=== PATIENT | female | born 1940 | race Caucasian/White ===

== ENCOUNTER → 2017-10-18 08:20 | Outpatient (CLI) | payer MEDICARE, OTHER, SELFPAY ==
[2017-10-18 10:56] LABS: ALB/GLOB Ratio 0.8 RATIO (0.9-2.4); AST(SGOT) 19 U/L (15-37); Alanine Aminotransfer ALT/SGPT 28 U/L (13-56); Albumin, Serum 3.7 g/dL (3.2-5.0); Alkaline Phosphatase 75 U/L (45-117); Anion Gap 9 (5-15); BUN 13 mg/dL (7-18); BUN/Creat Ratio 20.1 RATIO (10-20); Calcium,Total 8.8 mg/dL (8.5-10.1); Chloride 103 mmol/L (98-107); Cholesterol 131 mg/dL (200); Creatinine, Serum 0.65 mg/dL (0.55-1.02); EST Glomerular Filtration Rate 94 mL/min (>60); Est Glom Filt Rate - Afr Amer 114 mL/min (>60); Globulin 4.5 g/dL (2.2-4.2); Glucose 106 mg/dL (74-106); High Density Lipoprotein 67 mg/dL; Protein, Total 8.2 g/dL (6.4-8.2); Sodium Level 136 mmol/L (136-145); Thyroid Stim Hormone (TSH) 1.04 uIU/mL (0.358-3.74); Triglycerides 123 mg/dL; Very Low Density Lipoprotein 25 mg/dL (5-40)
== END ==
PROVIDERS: Family Provider Family Medicine; PCP Family Medicine; Visit Provider Family Medicine
DX: Z00.00 Encounter for general adult medical examination without abnormal findings (principal)
CPT/HCPCS: 36415; 80053; 80061; 84443

== ENCOUNTER → 2018-01-28 10:54 | Outpatient (CLI) | payer MEDICARE, OTHER, SELFPAY ==
[2018-01-28 14:28] LABS: Absolute Lymphocyte Count 2.41 X10^3/ul (0.83-4.51); Absolute Neutrophil Count 4.7 X10^3/uL (2.0-7.7); Basophil# 0.03 X10^3/uL; Basophil% 0.4 % (0-1); Eosinophil# 0.14 X10^3/uL; Eosinophils% 1.7 % (0-5); Hematocrit 41.2 % (37-47); Hemoglobin 13.8 g/dl (12.0-15.0); Lymphocyte # 2.41 X10^3/ul (4.0); Lymphocyte % 29.4 % (19-41); Mean Corp Hgb Conc 33.5 g/gl (32-36); Mean Corpuscular Hgb 29.4 pg (27.0-32.0); Mean Corpuscular Volume 87.7 fL (81-99); Mean Platelet Vol. 9.9 fl (6.2-12.0); Monocyte# 0.95 X10^3/uL; Monocyte% 11.6 % (0-10); Neutrophil # 4.67 X10^3/uL (2.7-7.7); Neutrophil % 56.8 % (47-70); Platelet Count 248 K/mm3 (150-450); RBC Distribution Width CV 14.2 % (11.6-14.6); RBC Distribution Width SD 45.2 fl (35.1-43.9); White Blood Count 8.2 K/mm3 (4.4-11.0)
[2018-01-28 14:33] LABS: POSITIVE COUNT NO; POSITIVE DIFFERENTIAL NO; POSITIVE MORPHOLOGY NO
[2018-01-28 14:40] LABS: Anion Gap 10 (5-15); BUN 14 mg/dL (7-18); BUN/Creat Ratio 23.5 RATIO (10-20); Calcium,Total 9.2 mg/dL (8.5-10.1); Chloride 100 mmol/L (98-107); EST Glomerular Filtration Rate 104 mL/min (>60); Est Glom Filt Rate - Afr Amer 126 mL/min (>60); Glucose 102 mg/dL (74-106); Potassium 3.7 mmol/L (3.5-5.1); Sodium Level 137 mmol/L (136-145)
== END ==
PROVIDERS: Nurse Practitioner Adult Health; Family Provider Family Medicine; PCP Family Medicine; Visit Provider Family Medicine
DX: R53.83 Other fatigue (principal)
CPT/HCPCS: 36415; 80048; 85025

== ENCOUNTER → 2018-10-23 08:26 | Outpatient (CLI) | payer MEDICARE, OTHER, SELFPAY ==
[2018-10-23 10:40] LABS: Microalbumin,Random Urine 84.9 mg/L (NO RANGE EST.); Microalbumin:Creatinine Ratio 71.9 mg/g CRE (<30 mg/g CRE)
[2018-10-23 10:47] LABS: ALB/GLOB Ratio 0.9 RATIO (0.9-2.4); AST(SGOT) 18 U/L (15-37); Alanine Aminotransfer ALT/SGPT 24 U/L (13-56); Albumin, Serum 3.6 g/dL (3.2-5.0); Alkaline Phosphatase 65 U/L (45-117); Anion Gap 11 (5-15); BUN 13 mg/dL (7-18); BUN/Creat Ratio 22.4 RATIO (10-20); Calcium,Total 8.7 mg/dL (8.5-10.1); Chloride 103 mmol/L (98-107); Cholesterol 150 mg/dL (200); Creatinine, Serum 0.58 mg/dL (0.55-1.02); EST Glomerular Filtration Rate 107 mL/min (>60); Est Glom Filt Rate - Afr Amer 129 mL/min (>60); Globulin 3.9 g/dL (2.2-4.2); Glucose 109 mg/dL (74-106); High Density Lipoprotein 78 mg/dL; Potassium 3.8 mmol/L (3.5-5.1); Protein, Total 7.5 g/dL (6.4-8.2); Sodium Level 140 mmol/L (136-145); Thyroid Stim Hormone (TSH) 1.23 uIU/mL (0.358-3.74); Triglycerides 129 mg/dL; Very Low Density Lipoprotein 26 mg/dL (5-40)
== END ==
PROVIDERS: Family Provider Family Medicine; PCP Family Medicine; Referring Provider Family Medicine; Visit Provider Family Medicine
DX: E03.9 Hypothyroidism, unspecified (principal); E78.00 Pure hypercholesterolemia, unspecified; I10 Essential (primary) hypertension
CPT/HCPCS: 36415; 80053; 80061; 82043; 82570; 84443

== ENCOUNTER → 2018-11-14 10:19 | Outpatient (CLI) | payer MEDICARE, OTHER, SELFPAY ==
--- NOTE | 2018-11-14 10:21 | BI_ITS ---
MAMMOGRAPHY - BILATERAL SCREENING REASON FOR EXAM: Female, 78 years old. Routine annual screening examination. PERTINENT HISTORY: Aunt with breast cancer. Remote left excisional breast biopsy. TECHNIQUE: Digital bilateral breast daksha (3D mammographic acquisition) in the CC and MLO projections. 2-D mediolateral oblique (MLO) and craniocaudad (CC) views of both breasts were obtained. CAD: Full Field Digital Mammography with Computer Added Detection was performed. COMPARISON: Comparison is made with prior study January 11, 2016 and December 13, 2014. FINDINGS: Breast Composition: There are scattered areas of fibroglandular density. In the deep lateral aspect of the left breast on the craniocaudad view, there appears to be 1.5 cm nodular density. The patient will be recalled for additional views of the breasts including 90 degree lateral and exaggerated craniocaudad view of the left breast. Stable small bilateral axillary lymph nodes. No other significant abnormalities are identified. BI/SCREENING MAMM (CAD), BILAT IMPRESSION: Possible nodular density in the deep lateral aspect of the left breast as seen on the craniocaudad view. The patient was recalled for additional views including 90 degree lateral and exaggerated craniocaudal view of the left breast. Recall Side: Right Breast ASSESSMENT CATEGORY: BIRADS Category 0: Incomplete. Need additional imaging evaluation. A letter regarding these results will be sent to the patient by the facility within 30 days. Approximately 10% of breast cancers are not detected by mammography. A normal mammogram should not delay biopsy of a clinically suspicious abnormality. [id number] Electronically Signed: Lance Hardwick, at 13:08 EDT , Service support ,
== END ==
PROVIDERS: Family Provider Family Medicine; PCP Family Medicine; Referring Provider Family Medicine; Visit Provider Family Medicine
DX: Z12.31 Encounter for screening mammogram for malignant neoplasm of breast (principal); Z80.3 Family history of malignant neoplasm of breast
CPT/HCPCS: 77063; 77067

== ENCOUNTER → 2018-11-21 08:52 | Outpatient (CLI) | payer MEDICARE, OTHER, SELFPAY ==
--- NOTE | 2018-11-21 08:56 | BI_ITS ---
MAMMOGRAPHY - UNILATERAL DIAGNOSTIC: LEFT BREAST REASON FOR EXAM: Female, 78 years old. Abnormal screening mammogram. PERTINENT HISTORY: Aunt with breast cancer. TECHNIQUE: Exaggerated craniocaudad view and 90 degree lateral view of the left breast were obtained. CAD: Full Field Digital Mammography with Computer Added Detection was performed. COMPARISON: Comparison is made with prior mammogram dated November 14, 2018. FINDINGS: Breast Composition: There are scattered areas of fibroglandular density. The nodular density represents a fat-containing lymph node. Routine annual mammogram is recommended. No other significant abnormalities are identified. BI/DIAG MAMM W/CAD, UNILAT IMPRESSION: Stable unilateral diagnostic mammogram. One year follow-up mammogram recommended. (A) ASSESSMENT CATEGORY: BIRADS Category 2: Benign. A letter regarding these results will be sent to the patient by the facility within 30 days. Approximately 10% of breast cancers are not detected by mammography. A normal mammogram should not delay biopsy of a clinically suspicious abnormality. Electronically Signed: Lance Hardwick, at 10:08 EDT , Service support ,
== END ==
PROVIDERS: Family Provider Family Medicine; PCP Family Medicine; Referring Provider Family Medicine; Visit Provider Family Medicine
DX: R92.8 Other abnormal and inconclusive findings on diagnostic imaging of breast (principal); Z80.3 Family history of malignant neoplasm of breast
CPT/HCPCS: 77065

== ENCOUNTER → 2019-03-10 10:47 | Outpatient (CLI) | payer MEDICARE, OTHER, SELFPAY ==
--- NOTE | 2019-03-10 10:52 | RAD_ITS ---
HISTORY: abdominal pain, colicky ADDITIONAL HISTORY: None. COMPARISON: None Technique: Supine and upright abdominal radiographs. Number of images including paperwork: 2 FINDINGS: FREE AIR: None detected. BOWEL GAS PATTERN: Nonobstructive. CALCIFICATIONS: 14 mm calcific density projects over the right mid to lower kidney. ORGANS: No evidence of organomegaly. SOFT TISSUES: Unremarkable. BONES: No acute skeletal findings. Degenerative changes. RAD/Abd Inc Decub and/or Erect IMPRESSION: No acute abdominal abnormality is radiographically apparent. 14 mm calcific density projects over the right kidney, possibly renal calculus, calcified node, gallstone or bowel content. at 2342 Reported and signed by: Elena Arizmendi MD Electronically Signed: Elena Arizmendi MD at 23:42 EDT Tel , Service support ,
--- NOTE | 2019-03-10 10:55 | RAD_ITS ---
HISTORY: abdominal pain, colicky ADDITIONAL HISTORY: None. COMPARISON: Abdominal series the same date Technique: Left lateral decubitus abdominal radiographs Number of images including paperwork: 2 FINDINGS: FREE AIR: None detected. BOWEL GAS PATTERN: Nonobstructive. CALCIFICATIONS: 14 mm calcific density projects over the right mid to lower kidney. ORGANS: No evidence of organomegaly. SOFT TISSUES: Unremarkable. BONES: No acute skeletal findings. Degenerative changes. RAD/Abdomen Single View IMPRESSION: No acute abdominal abnormality is radiographically apparent. 14 mm calcific density projects over the right kidney, possibly renal calculus, calcified node, gallstone or bowel content. at [id number] Reported and signed by: Elena Arizmendi MD Electronically Signed: Elena Arizmendi MD at 23:43 EDT Tel , Service support ,
== END ==
PROVIDERS: Family Provider Family Medicine; PCP Family Medicine; Referring Provider Family Medicine; Visit Provider Family Medicine
DX: R10.84 Generalized abdominal pain (principal)
CPT/HCPCS: 74018; 74019

== ENCOUNTER → 2019-04-21 09:46 | Outpatient (CLI) | payer MEDICARE, OTHER, SELFPAY ==
[2019-04-21 12:21] LABS: Anion Gap 7 (5-15); BUN 14 mg/dL (7-18); BUN/Creat Ratio 21.1 RATIO (10-20); Calcium,Total 9.1 mg/dL (8.5-10.1); Chloride 96 mmol/L (98-107); Creatinine, Serum 0.66 mg/dL (0.55-1.02); EST Glomerular Filtration Rate 91 mL/min (>60); Est Glom Filt Rate - Afr Amer 111 mL/min (>60); Glucose 146 mg/dL (74-106); Potassium 3.6 mmol/L (3.5-5.1); Sodium Level 132 mmol/L (136-145)
[2019-04-21 12:26] LABS: Microalbumin,Random Urine 22.5 mg/L (NO RANGE EST.)
== END ==
PROVIDERS: Family Provider Family Medicine; PCP Family Medicine; Visit Provider Family Medicine
DX: I10 Essential (primary) hypertension (principal); R80.9 Proteinuria, unspecified
CPT/HCPCS: 36415; 80048; 82043; 82570

== ENCOUNTER → 2019-05-06 08:34 | Outpatient (CLI) | payer MEDICARE, OTHER, SELFPAY ==
[2019-05-06 10:29] LABS: Urine Sodium 51 mmol/L (Not Establ.)
[2019-05-06 10:42] LABS: Osmolality, Urine 527 mOsm/KG
[2019-05-06 10:52] LABS: Anion Gap 9 (5-15); BUN 17 mg/dL (7-18); Calcium,Total 8.8 mg/dL (8.5-10.1); Chloride 101 mmol/L (98-107); Creatinine, Serum 0.65 mg/dL (0.55-1.02); EST Glomerular Filtration Rate 93 mL/min (>60); Est Glom Filt Rate - Afr Amer 113 mL/min (>60); Glucose 119 mg/dL (74-106); Sodium Level 136 mmol/L (136-145)
== END ==
PROVIDERS: Family Provider Family Medicine; PCP Family Medicine; Referring Provider Family Medicine; Visit Provider Family Medicine
DX: I10 Essential (primary) hypertension (principal)
CPT/HCPCS: 36415; 80048; 83935; 84300

== ENCOUNTER → 2020-02-17 15:20 | Outpatient (CLI) | payer MEDICARE, OTHER, SELFPAY ==
[2020-02-17 17:57] LABS: Vitamin D,25 Hydroxy 27.5 ng/mL
[2020-02-17 18:14] LABS: ALB/GLOB Ratio 0.9 RATIO (0.9-2.4); AST(SGOT) 17 U/L (15-37); Alanine Aminotransfer ALT/SGPT 36 U/L (13-56); Albumin, Serum 3.7 g/dL (3.2-5.0); Alkaline Phosphatase 77 U/L (45-117); Anion Gap 6 (5-15); BUN 17 mg/dL (7-18); BUN/Creat Ratio 28.3 RATIO (10-20); Calcium,Total 9.1 mg/dL (8.5-10.1); Chloride 103 mmol/L (98-107); Cholesterol 134 mg/dL (200); EST Glomerular Filtration Rate 102 mL/min (>60); Est Glom Filt Rate - Afr Amer 124 mL/min (>60); Globulin 4.2 g/dL (2.2-4.2); Glucose 95 mg/dL (74-106); High Density Lipoprotein 55 mg/dL; Potassium 3.9 mmol/L (3.5-5.1); Protein, Total 7.9 g/dL (6.4-8.2); Sodium Level 135 mmol/L (136-145); Thyroid Stim Hormone (TSH) 0.71 uIU/mL (0.358-3.74); Triglycerides 184 mg/dL; Very Low Density Lipoprotein 37 mg/dL (5-40)
== END ==
PROVIDERS: PCP Family Medicine; Referring Provider Family Medicine; Visit Provider Family Medicine
DX: E78.00 Pure hypercholesterolemia, unspecified (principal); E03.9 Hypothyroidism, unspecified; M85.80 Other specified disorders of bone density and structure, unspecified site; I10 Essential (primary) hypertension
CPT/HCPCS: 36415; 80053; 80061; 82306; 84443

== ENCOUNTER → 2020-03-15 14:16 | Outpatient (CLI) | payer MEDICARE, OTHER, SELFPAY ==
--- NOTE | 2020-03-15 14:19 | BI_ITS ---
MAMMOGRAPHY - BILATERAL SCREENING REASON FOR EXAM: Female, 79 years old. Routine annual screening examination. PERTINENT HISTORY: Aunt with breast cancer. Remote left excisional breast biopsy. TECHNIQUE: Digital bilateral breast bryan (3D mammographic acquisition) in the CC and MLO projections. 2-D mediolateral oblique (MLO) and craniocaudad (CC) views of both breasts were obtained. CAD: Full Field Digital Mammography with Computer Added Detection was performed. COMPARISON: Comparison is made with prior study dated 11/14/2018 and 01/11/2016. FINDINGS: Breast Composition: The breasts are heterogeneously dense, which may obscure small masses. There are no dominant masses or suspicious calcifications. Questionable 1.2 cm x 1.3 cm nodular density in the superior lateral retroareolar region of the right breast. Correlation with ultrasound is recommended. No other significant abnormalities are identified. BI/SCREEN MAMM (CAD) W/BRYAN BILAT IMPRESSION: Possible nodular density in the right breast as described. Correlation with ultrasound is recommended. ASSESSMENT CATEGORY: BIRADS Category 0: Incomplete. Need additional imaging evaluation. A letter regarding these results will be sent to the patient by the facility within 30 days. Approximately 10% of breast cancers are not detected by mammography. A normal mammogram should not delay biopsy of a clinically suspicious abnormality. [id number] Electronically Signed: Lance Hardwick, at 15:22 EDT , Service support ,
--- NOTE | 2020-03-15 14:19 | BD_ITS ---
STUDY: DUAL ENERGY X-RAY ABSORPTIOMETRY / DXA REASON FOR EXAM: Female, 79 years old. 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 COMPARISON: Comparison is made with prior study dated 11/01/2016. FINDINGS: Lumbar Spine (L1-L4): g/cm2 (0.964) / T-score (-2.0) / Z-score (0.1) Findings are suggestive of osteopenia with a moderate fracture risk. Left Femur Total: g/cm2 (0.936) / T-score (-0.6) / Z-score (1.4) Left Femoral Neck: g/cm2 (0.709) / T-score (-2.4) / Z-score (-0.2) Right Femur Total: g/cm2 (0.845) / T-score (-1.3) / Z-score (0.7) Right Femoral Neck: g/cm2 (0.737) / T-score (-2.2) / Z-score (0.0) The T-Scores on the most recent prior examination were: Lumbar Spine (L1-L4): There has been worsening of bone density since the previous examination. Left Femur Total: which represents an improvement of 2%. Right Femur Total: which represents an improvement of 1%. BD/Dexa Bone Density Study IMPRESSION: The patient is considered osteopenic as outlined below according to World Reji Organization (WHO) criteria with a high fracture risk. There has been improvement of bone density since the previous examination. Reference Information: The T-score is the number of standard deviations above or below the standard which is normal for young adults at their peak bone mineral density. The World Health Organization (WHO) interprets the T-scores as follows: Above -1 Normal bone density Between -1 and -2.5 Osteopenia Equal to / or below -2.5 Osteoporosis As a practical clinical guideline, osteopenia may be graded as follows: Mild -1 through -1.5 Moderate -1.6 through -2.0 Severe -2.1 through -2.4 The Z-score is the number of standard deviations above or below age-matched controls. A Z-score of less than -1.5 would be considered abnormal. References: 1. NIH Osteoporosis and Related Bone Diseases http://www.osteo.org 2. International Society for Clinical Densitometry http://www.iscd.org 3. National Osteoporosis Foundation http://www.nof.org Electronically Signed: Lance Hardwick, at 15:49 EDT , Service support ,
== END ==
PROVIDERS: PCP Family Medicine; Referring Provider Family Medicine; Visit Provider Family Medicine
DX: Z00.00 Encounter for general adult medical examination without abnormal findings (principal); Z12.31 Encounter for screening mammogram for malignant neoplasm of breast; M85.80 Other specified disorders of bone density and structure, unspecified site; Z78.0 Asymptomatic menopausal state
CPT/HCPCS: 77063; 77067; 77080

== ENCOUNTER → 2020-03-17 10:50 | Outpatient (CLI) | payer MEDICARE, OTHER, SELFPAY ==
--- NOTE | 2020-03-17 10:52 | US_ITS ---
STUDY: ULTRASOUND BREAST - RIGHT REASON FOR EXAM: Female, 79 years old. Abnormal screening mammogram. TECHNIQUE: Axial and longitudinal images of the RIGHT breast were performed with a high resolution ultrasound transducer. # OF IMAGES: 19 COMPARISON: Comparison is made with prior mammogram dated 03/15/2020. FINDINGS: RIGHT Breast: The retroareolar region of the right breast was examined by ultrasound. There is homogeneous fibroglandular tissue. No solid or cystic mass lesion is seen. US/Breast Limited Unilateral IMPRESSION: Unremarkable sonographic examination. Routine mammographic follow-up is recommended. ASSESSMENT CATEGORY: BIRADS Category 1: Negative. A letter regarding these results will be sent to the patient by the facility within 30 days. Electronically Signed: Lance Hardwick, at 13:35 EDT , Service support ,
== END ==
PROVIDERS: PCP Family Medicine; Referring Provider Family Medicine; Visit Provider Family Medicine
DX: R92.8 Other abnormal and inconclusive findings on diagnostic imaging of breast (principal)
CPT/HCPCS: 76642

== ENCOUNTER → 2020-04-12 | Outpatient (CLI) | payer MEDICARE, OTHER, SELFPAY | END | disposition home or self-care (01) | LOC: LABSPEC 16:46 | PROVIDERS: PCP Family Medicine; Referring Provider Family Medicine; Visit Provider Registered Nurse | DX: Z20.828 Contact with and (suspected) exposure to other viral communicable diseases (principal) | CPT/HCPCS: 87635; U0003 ==

== ENCOUNTER → 2021-03-01 08:13 | Outpatient (CLI) | payer MEDICARE, OTHER, SELFPAY ==
[2021-03-01 10:09] LABS: Hematocrit 43.4 % (37-47); Hemoglobin 14.4 g/dL (12.0-15.0); Mean Corp Hgb Conc 33.2 g/dL (32-36); Mean Corpuscular Hgb 29.5 pg (27.0-32.0); Mean Corpuscular Volume 88.9 fL (81-99); Platelet Count 248 K/mm3 (150-450); RBC Distribution Width CV 13.2 % (11.6-14.6); RBC Distribution Width SD 42.8 fl (35.1-43.9); Red Blood Count 4.88 M/mm3 (4.2-5.4); White Blood Count 6.6 K/mm3 (4.4-11.0)
[2021-03-01 10:38] LABS: Anion Gap 7 (5-15); BUN 14 mg/dL (7-18); BUN/Creat Ratio 24.3 RATIO (10-20); Calcium,Total 8.7 mg/dL (8.5-10.1); Chloride 104 mmol/L (98-107); Cholesterol 137 mg/dL (200); Creatinine, Serum 0.58 mg/dL (0.55-1.02); EST Glomerular Filtration Rate 107 mL/min (>60); Est Glom Filt Rate - Afr Amer 130 mL/min (>60); Glucose 128 mg/dL (74-106); High Density Lipoprotein 67 mg/dL; Potassium 3.9 mmol/L (3.5-5.1); Sodium Level 137 mmol/L (136-145); Thyroid Stim Hormone (TSH) 1.82 uIU/mL (0.358-3.74); Triglycerides 134 mg/dL; Very Low Density Lipoprotein 27 mg/dL (5-40)
== END ==
PROVIDERS: PCP Family Medicine; Referring Provider Family Medicine; Visit Provider Nurse Practitioner Family
DX: E03.9 Hypothyroidism, unspecified (principal); E78.00 Pure hypercholesterolemia, unspecified; I10 Essential (primary) hypertension
CPT/HCPCS: 36415; 80048; 80061; 84443; 85027

== ENCOUNTER → 2021-04-24 12:18 | Outpatient (CLI) | payer MEDICARE, OTHER, SELFPAY ==
--- NOTE | 2021-04-24 12:24 | BI_ITS ---
MAMMOGRAPHY - BILATERAL SCREENING REASON FOR EXAM: Female, 80 years old. Routine annual screening examination. PERTINENT HISTORY: Aunt with breast cancer. Remote left excisional breast biopsy. TECHNIQUE: Digital bilateral breast bryan (3D mammographic acquisition) in the CC and MLO projections. 2-D mediolateral oblique (MLO) and craniocaudad (CC) views of both breasts were obtained. CAD: Full Field Digital Mammography with Computer Added Detection was performed. COMPARISON: Comparison is made with prior study dated 03/15/2020 and 11/14/2018. FINDINGS: Breast Composition: The breasts are heterogeneously dense, which may obscure small masses. Once again, possible nodular density in the lateral superior retroareolar density in the right breast. Prior ultrasound did not show an abnormality. The patient will be recalled for additional views of the right breast including 90 degree lateral and compression spot views. No other significant abnormalities are identified. BI/SCRN MAMM (CAD)W/BRYAN BILAT IMPRESSION: Stable bilateral screening mammogram. The patient will be recalled for additional views of the right breast. Recall Side: Right Breast ASSESSMENT CATEGORY: BIRADS Category 0: Incomplete. Need additional imaging evaluation. A letter regarding these results will be sent to the patient by the facility within 30 days. Approximately 10% of breast cancers are not detected by mammography. A normal mammogram should not delay biopsy of a clinically suspicious abnormality. [id number] Electronically Signed: Lance Hardwick MD at 13:16 EDT , Service support ,
== END ==
PROVIDERS: PCP Family Medicine; Referring Provider Nurse Practitioner Family; Visit Provider Nurse Practitioner Family
DX: Z12.31 Encounter for screening mammogram for malignant neoplasm of breast (principal); Z80.3 Family history of malignant neoplasm of breast
CPT/HCPCS: 77063; 77067

== ENCOUNTER → 2021-05-01 09:27 | Outpatient (CLI) | payer MEDICARE, OTHER, SELFPAY ==
--- NOTE | 2021-05-01 09:30 | BI_ITS ---
MAMMOGRAPHY - UNILATERAL DIAGNOSTIC: RIGHT BREAST REASON FOR EXAM: Female, 80 years old. Abnormal screening mammogram. PERTINENT HISTORY: Aunt with breast cancer. TECHNIQUE: Magnification spot views of the right breast in mediolateral oblique and craniocaudad views were obtained. CAD: Full Field Digital Mammography with Computer Added Detection was performed. COMPARISON: Comparison is made with prior mammogram dated 04/24/2021. FINDINGS: Breast Composition: The breasts are heterogeneously dense, which may obscure small masses. Stable faint nodular densities seen in the upper lateral aspect of the right breast. Correlation with ultrasound is recommended. No other significant abnormalities are identified. BI/DIAG MAMM W/CAD, UNILAT IMPRESSION: Persistent nodular density in the upper-outer quadrant of the right breast as described. Correlation with ultrasound is recommended. ASSESSMENT CATEGORY: BIRADS Category 0: Incomplete. Need additional imaging evaluation. A letter regarding these results will be sent to the patient by the facility within 30 days. Approximately 10% of breast cancers are not detected by mammography. A normal mammogram should not delay biopsy of a clinically suspicious abnormality. Electronically Signed: Lance Hardwick MD at 10:37 EST , Service support ,
--- NOTE | 2021-05-01 09:33 | US_ITS ---
STUDY: ULTRASOUND BREAST - RIGHT REASON FOR EXAM: Female, 80 years old. Abnormal screening mammogram. TECHNIQUE: Axial and longitudinal images of the RIGHT breast were performed with a high resolution ultrasound transducer. # OF IMAGES: 50 COMPARISON: Comparison is made with prior mammogram dated 05/01/2019 and 04/24/2021. FINDINGS: RIGHT Breast: There is a 1.2 cm x 1 cm x 0.6 cm slightly lobulated hypoechoic solid nodule at the 9 o''clock position of the breast at 5 cm from the nipple. Biopsy is recommended. US/Breast Limited Unilateral IMPRESSION: 1.2 cm x 1 cm x 0.6 cm slightly lobulated hypoechoic solid nodule at 9 o''clock position of the breast at 5 cm from nipple. Biopsy is recommended. ASSESSMENT CATEGORY: BIRADS Category 4: Suspicious - Biopsy Should Be Considered. A letter regarding these results will be sent to the patient by the facility within 30 days. Electronically Signed: Lance Hardwick MD at 12:33 EST , Service support ,
== END ==
PROVIDERS: PCP Family Medicine; Referring Provider Nurse Practitioner Family; Visit Provider Nurse Practitioner Family
DX: R92.8 Other abnormal and inconclusive findings on diagnostic imaging of breast (principal); Z80.3 Family history of malignant neoplasm of breast
CPT/HCPCS: 76642; 77065

== ENCOUNTER → 2021-05-03 08:30 | Outpatient (CLI) | payer MEDICARE, OTHER, SELFPAY ==
--- NOTE | 2021-05-03 | BRBX_PTH ---
PATIENT: BRENDA GOODMAN LOC: [facility] U#:[id number] AGE/SX: 84/F ROOM: RE05/03/[address]: Dr. Ubaldo Gann MD : 1940 BED: DIS: SPEC #: [id number] RECD: 05/03/21 11:06 STATUS: LIUDMILA PRITESH #: [id number] MARTHA: 05/03/21 00:[address]: Ubaldo Gann DEPT: SURGICAL PATHOLOGY RECD BY: Ajit Mcbride ENTERED: 05/04/21 09:39 SP TYPE: BREAST BX OTHR DR: Dr. Rodri Palomares MD Tissues: Right breast, NOS Procedures: Surgery Specimen Level IV HEADER OPERATION: Right breast biopsy PRE-OP DIAGNOSIS: Right breast mass TISSUE SUBMITTED: Right breast tissue FIXATION TIME: 11 hours MICROSCOPIC DIAGNOSIS Right breast mass, core biopsy: Hyalinized fibroadenoma. Negative for atypia or malignancy. See comment. SJ:viet 05/04/2021 COMMENT Correlation with clinical, radiologic findings and appropriate follow up are necessary. MICROSCOPIC DESCRIPTION Slides are reviewed. GROSS DESCRIPTION Received in fixative is one container labeled with the patient's name and designated right breast. The specimen consists of multiple elongated fragments of lynn-yellow fibroadipose tissue that in aggregate measure 1 x 0.5 x 0.1 cm. The entire specimen is submitted in one cassette. / AWA:viet 05/03/21 TC:1 CPT: 06725
== END ==
PROVIDERS: PCP Family Medicine; Visit Provider Surgery
DX: N63.10 Unspecified lump in the right breast, unspecified quadrant (principal)
CPT/HCPCS: 88305

== ENCOUNTER 2021-09-27 12:36 | Outpatient (CLI) | payer MEDICARE, OTHER, SELFPAY ==
--- NOTE | 2021-09-27 12:39 | US_ITS ---
STUDY: ULTRASOUND BREAST - RIGHT REASON FOR EXAM: Female, 81 years old. Right breast mass. Recent breast biopsy. TECHNIQUE: Axial and longitudinal images of the RIGHT breast were performed with a high resolution ultrasound transducer. # OF IMAGES: 16 COMPARISON: Comparison is made with prior ultrasound of the right breast dated 05/01/2021. FINDINGS: RIGHT Breast: There is a 1.1 cm x 1.1 cm x 0.6 cm slightly lobulated hypoechoic solid nodule at the 9 o''clock position of the breast and 5 samples from the nipple. A tissue clip marker is seen within. US/Breast Limited Unilateral IMPRESSION: Stable appearance of the nodular density at the 9 o''clock position of the breast at 5 cm from nipple. A tissue clip marker is seen within it. ASSESSMENT CATEGORY: BIRADS Category 2: Benign. A letter regarding these results will be sent to the patient by the facility within 30 days. Electronically Signed: Lance Hardwick MD at 13:42 EDT ,
== END 2021-09-27 23:59 | disposition home or self-care (01) ==
LOC: OPUS 12:37
PROVIDERS: PCP Family Medicine; Visit Provider Surgery
DX: N63.10 Unspecified lump in the right breast, unspecified quadrant (principal); R92.2 Inconclusive mammogram
CPT/HCPCS: 76642

== ENCOUNTER → 2021-10-20 | Outpatient (CLI) | payer MEDICARE, OTHER, SELFPAY ==
[2021-10-20 15:04] LABS: Absolute Neutrophil Count 4.8 X10^3/uL (2.0-7.7); Basophil# 0.04 X10^3/uL; Basophil% 0.5 % (0-1); Eosinophil# 0.12 X10^3/uL; Eosinophils% 1.4 % (0-5); Hematocrit 44.5 % (37-47); Hemoglobin 14.9 g/dL (12.0-15.0); Lymphocyte % 31.2 % (19-41); Mean Corp Hgb Conc 33.5 g/dL (32-36); Mean Corpuscular Hgb 29.7 pg (27.0-32.0); Mean Corpuscular Volume 88.6 fL (81-99); Mean Platelet Vol. 10.8 fl (6.2-12.0); Monocyte# 0.81 X10^3/uL; Monocyte% 9.7 % (0-10); NRBC Flagged by Analyzer 0 % (0-5); Neutrophil # 4.75 X10^3/uL (2.7-7.7); Neutrophil % 57.1 % (47-70); Platelet Count 200 K/mm3 (150-450); RBC Distribution Width CV 13.2 % (11.6-14.6); RBC Distribution Width SD 42.9 fl (35.1-43.9); Red Blood Count 5.02 M/mm3 (4.2-5.4); White Blood Count 8.3 K/mm3 (4.4-11.0)
[2021-10-20 15:26] LABS: Creatinine, Urine (random) < 13.00 mg/dL (NO RANGE EST.); Hemoglobin A1c 6.2 % (3.8-5.6); Microalbumin,Random Urine 40.4 mg/L (NO RANGE EST.)
[2021-10-20 15:28] LABS: Vitamin D,25 Hydroxy 41.4 ng/mL
[2021-10-20 15:34] LABS: ALB/GLOB Ratio 0.8 RATIO (0.9-2.4); AST(SGOT) 20 U/L (15-37); Alanine Aminotransfer ALT/SGPT 25 U/L (13-56); Albumin, Serum 3.8 g/dL (3.2-5.0); Alkaline Phosphatase 75 U/L (45-117); Anion Gap 5 (5-15); BUN 18 mg/dL (7-18); BUN/Creat Ratio 29.4 RATIO (10-20); Calcium,Total 9.2 mg/dL (8.5-10.1); Chloride 105 mmol/L (98-107); Creatinine, Serum 0.61 mg/dL (0.55-1.02); EST Glomerular Filtration Rate 100 mL/min (>60); Est Glom Filt Rate - Afr Amer 121 mL/min (>60); Globulin 4.6 g/dL (2.2-4.2); Glucose 100 mg/dL (74-106); Magnesium 2.4 mg/dL (1.6-2.6); Protein, Total 8.4 g/dL (6.4-8.2); Sodium Level 136 mmol/L (136-145); T4 Free Direct 0.27 ng/dL (0.76-1.46); Thyroid Stim Hormone (TSH) 1.62 uIU/mL (0.358-3.74)
== END | disposition home or self-care (01) ==
LOC: MFPLAB 12:12
PROVIDERS: PCP Family Medicine; Referring Provider Family Medicine; Visit Provider Family Medicine
DX: I51.7 Cardiomegaly (principal); I49.9 Cardiac arrhythmia, unspecified; M85.80 Other specified disorders of bone density and structure, unspecified site; E03.9 Hypothyroidism, unspecified; I10 Essential (primary) hypertension; R73.9 Hyperglycemia, unspecified
CPT/HCPCS: 36415; 80053; 82043; 82306; 82570; 83036; 83735; 84439; 84443; 85025

== ENCOUNTER → 2021-11-24 | Outpatient (CLI) | payer MEDICARE, OTHER, SELFPAY ==
--- NOTE | 2021-11-24 09:29 | ECHOCS_ITS ---
Reason For Study: LVH by EKG Procedure This was a 2D Doppler, Color Flow transthoracic echocardiogram. The study was technically difficult. Contrast injection was performed. Bubble study performed. Exam performed in department. Left Ventricle Normal LV size. Left ventricular systolic function is normal. The estimated ejection fraction is 65 %. Stage 1 diastolic dysfunction. No regional wall motion abnormalities noted. Right Ventricle Normal RV size. Normal systolic function. Atria Normal left atrium. Normal right atrium. Bubble contrast study negative for right to left interatrial shunt. Mitral Valve Normal mitral valve. Tricuspid Valve Normal tricuspid valve. Aortic Valve Trisinus/trileaflet aortic valve. Mild (1+) eccentric aortic valve insufficiency. Pulmonic Valve Normal pulmonic valve. Great Vessels Normal aortic root. The pulmonary artery is normal size. Normal inferior vena cava. Pericardium/Pleural No pericardial effusion. Medication 22 gauge I.V. with prn adaptor inserted into right arm. Diluted definity 2ml given slow IV push to enhance endocardial definition. Performed a rapid injection of agitated mix of 9 cc saline and 1cc air to assess for atrial septal defect. MMode/2D Measurements & Calculations LVIDd: 4.7 cm IVSd: 0.85 cm Ao root diam: 3.1 cm LVIDs: 3.6 cm LVPWd: 0.87 cm LA dimension: 3.4 cm RVDd: 3.2 cm FS: 23.7 % LAV(MOD-bp): 54.6 ml LVAd ap4: 25.1 cm2 SV(MOD-sp4): 31.9 ml LAV(MOD-bp) Indexed: 36.6 ml/m2 LVLd ap4: 7.0 cm LAV(MOD-sp2): 45.0 ml EDV(MOD-sp4): 72.1 ml LAV(MOD-sp4): 63.2 ml EDV(sp4-el): 76.4 ml LVAs ap4: 17.3 cm2 LVLs ap4: 6.0 cm ESV(MOD-sp4): 40.2 ml ESV(sp4-el): 42.4 ml EF(MOD-sp4): 44.2 % EF(sp4-el): 44.5 % SV(sp4-el): 34.0 ml LA A4 area: 20.4 cm2 RA A4 area: 9.0 cm2 Time Measurements MV dec time: 0.22 sec Doppler Measurements & Calculations MV E max dustin: 88.3 cm/sec Lat Peak E' Dustin: 7.6 cm/sec Med Peak E' Dustin: 5.2 cm/sec MV A max dustin: 103.4 cm/sec E/E' lat: 11.7 E/E' med: 16.9 MV E/A: 0.85 MV V2 max: 107.4 cm/sec MV P1/2t max dustin: 99.0 cm/sec Ao V2 max: 118.4 cm/sec MV max P.6 mmHg MV P1/2t: 65.1 msec Ao max P.6 mmHg MV V2 mean: 59.0 cm/sec MV mean P.7 mmHg MV dec slope: 445.5 cm/sec2 MV V2 VTI: 32.0 cm MVA(P1/2t): 3.4 cm2 AI max dustin: 454.2 cm/sec LV V1 max: 99.7 cm/sec PA V2 max: 80.9 cm/sec AI max P.5 mmHg LV V1 max P.0 mmHg AI dec slope: 220.5 cm/sec2 AI P1/2t: 603.4 msec ECHO/Echo Complete W/ Contrast Interpretation Summary Normal LV size. Left ventricular systolic function is normal. The estimated ejection fraction is 65 %. Bubble contrast study negative for right to left interatrial shunt. Stage 1 diastolic dysfunction. Mild (1+) eccentric aortic valve insufficiency. Ordering Physician: Rodri Palomares Referring Physician: Rodri Palomares Performed By: Andrea Groves RCS
== END | disposition home or self-care (01) ==
LOC: CVS 09:24
PROVIDERS: PCP Family Medicine; Visit Provider Family Medicine
DX: I51.7 Cardiomegaly (principal)
CPT/HCPCS: 93306; Q9957; A4216; C8929

== ENCOUNTER → 2022-01-09 | Outpatient (CLI) | payer MEDICARE, OTHER, SELFPAY ==
[2022-01-09 10:46] LABS: Free T3 2.6 pg/mL (2.18-3.98); T4 Free Direct 0.26 ng/dL (0.76-1.46); Thyroid Stim Hormone (TSH) 1.22 uIU/mL (0.358-3.74)
== END | disposition home or self-care (01) ==
LOC: MFPLAB 08:30
PROVIDERS: PCP Family Medicine; Visit Provider Family Medicine
DX: E03.9 Hypothyroidism, unspecified (principal)
CPT/HCPCS: 36415; 84439; 84443; 84481

== ENCOUNTER → 2022-04-30 | Outpatient (CLI) | payer MEDICARE, OTHER, SELFPAY ==
[2022-04-30 16:05] LABS: Anion Gap 7 (5-15); BUN 17 mg/dL (7-18); BUN/Creat Ratio 26.9 RATIO (10-20); Calcium,Total 9.2 mg/dL (8.5-10.1); Chloride 103 mmol/L (98-107); Creatinine, Serum 0.63 mg/dL (0.55-1.02); EST Glomerular Filtration Rate 96 mL/min (>60); Est Glom Filt Rate - Afr Amer 116 mL/min (>60); Free T3 2.2 pg/mL (2.18-3.98); Glucose 102 mg/dL (74-106); Magnesium 2.4 mg/dL (1.6-2.6); Sodium Level 136 mmol/L (136-145); T4 Total, Thyroxin 0.6 ug/dL (4.8-13.9); Thyroid Stim Hormone (TSH) 1.43 uIU/mL (0.358-3.74)
== END | disposition home or self-care (01) ==
LOC: MFPLAB 12:03
PROVIDERS: PCP Family Medicine; Referring Provider Family Medicine; Visit Provider Nurse Practitioner Family
DX: E03.9 Hypothyroidism, unspecified (principal); I10 Essential (primary) hypertension
CPT/HCPCS: 36415; 80048; 83735; 84436; 84443; 84481

== ENCOUNTER → 2022-05-18 | Outpatient (CLI) | payer MEDICARE, OTHER, SELFPAY | END | disposition home or self-care (01) | LOC: PSN 11:31 | PROVIDERS: PCP Family Medicine; Referring Provider Internal Medicine Cardiovascular Disease; Visit Provider Nurse Practitioner Family | DX: I49.9 Cardiac arrhythmia, unspecified (principal) | CPT/HCPCS: 93225; 93226 ==

== ENCOUNTER → 2022-10-17 | Outpatient (CLI) | payer MEDICARE, OTHER, SELFPAY ==
[2022-10-17 10:38] LABS: Absolute Lymphocyte Count 2.25 X10^3/uL (0.83-4.51); Absolute Neutrophil Count 3.4 X10^3/uL (2.0-7.7); Basophil# 0.04 X10^3/uL; Basophil% 0.6 % (0-1); Eosinophil# 0.09 X10^3/uL; Eosinophils% 1.4 % (0-5); Hematocrit 45.3 % (37-47); Hemoglobin 14.9 g/dL (12.0-15.0); Lymphocyte # 2.25 X10^3/ul (0.83-4.51); Lymphocyte % 34.7 % (19-41); Mean Corp Hgb Conc 32.9 g/dL (32-36); Mean Corpuscular Volume 88.1 fL (81-99); Mean Platelet Vol. 9.7 fl (6.2-12.0); Monocyte# 0.66 X10^3/uL; Monocyte% 10.2 % (0-10); NRBC Flagged by Analyzer 0 % (0-5); Neutrophil # 3.44 X10^3/uL (2.7-7.7); Neutrophil % 52.9 % (47-70); Platelet Count 231 K/mm3 (150-450); RBC Distribution Width CV 13.3 % (11.6-14.6); RBC Distribution Width SD 43.4 fl (35.1-43.9); Red Blood Count 5.14 M/mm3 (4.2-5.4); White Blood Count 6.5 K/mm3 (4.4-11.0)
[2022-10-17 10:58] LABS: Vitamin D,25 Hydroxy 75.2 ng/mL
[2022-10-17 11:02] LABS: ALB/GLOB Ratio 0.8 RATIO (0.9-2.4); AST(SGOT) 19 U/L (15-37); Alanine Aminotransfer ALT/SGPT 23 U/L (13-56); Albumin, Serum 3.7 g/dL (3.2-5.0); Alkaline Phosphatase 78 U/L (45-117); Anion Gap 5 (5-15); BUN 17 mg/dL (7-18); BUN/Creat Ratio 26.6 RATIO (10-20); Calcium,Total 9.2 mg/dL (8.5-10.1); Chloride 103 mmol/L (98-107); Creatinine, Serum 0.64 mg/dL (0.55-1.02); EST Glomerular Filtration Rate 95 mL/min (>60); Est Glom Filt Rate - Afr Amer 114 mL/min (>60); Globulin 4.5 g/dL (2.2-4.2); Glucose 105 mg/dL (74-106); Potassium 3.6 mmol/L (3.5-5.1); Protein, Total 8.2 g/dL (6.4-8.2); Sodium Level 136 mmol/L (136-145); T4 Free Direct 0.22 ng/dL (0.76-1.46); Thyroid Stim Hormone (TSH) 1.47 uIU/mL (0.358-3.74)
[2022-10-17 11:20] LABS: Microalbumin:Creatinine Ratio 123.2 mg/g CRE (<30 mg/g CRE)
== END | disposition home or self-care (01) ==
LOC: MTLAB 08:42
PROVIDERS: PCP Family Medicine; Referring Provider Family Medicine; Visit Provider Family Medicine
DX: M54.50 Low back pain, unspecified (principal); M85.80 Other specified disorders of bone density and structure, unspecified site; I10 Essential (primary) hypertension; E03.9 Hypothyroidism, unspecified
CPT/HCPCS: 36415; 80053; 82043; 82306; 82570; 84439; 84443; 85025

== ENCOUNTER → 2022-10-25 | Outpatient (CLI) | payer MEDICARE, OTHER, SELFPAY ==
--- NOTE | 2022-10-25 10:30 | BI_ITS ---
MAMMOGRAPHY - BILATERAL SCREENING REASON FOR EXAM: Female, 82 years old. Routine annual screening examination. PERTINENT HISTORY: Aunt with breast cancer. Prior right ultrasound-guided breast biopsy and left excisional breast biopsy. TECHNIQUE: Digital bilateral breast bryan (3D mammographic acquisition) in the CC and MLO projections. 2-D mediolateral oblique (MLO) and craniocaudad (CC) views of both breasts were obtained. CAD: Full Field Digital Mammography with Computer Added Detection was performed. COMPARISON: Comparison is made with prior study dated April 24, 2021 and May 01, 2021. FINDINGS: Breast Composition: The breasts are heterogeneously dense, which may obscure small masses. There are no dominant masses or suspicious calcifications. A tissue clip marker is seen in a small nodular density in the anterior upper lateral aspect of the right breast. Stable small benign-appearing bilateral axillary lymph nodes. No other significant abnormalities are identified. There has been no significant change since the prior study. BI/SCRN MAMM (CAD)W/BRYAN BILAT IMPRESSION: Stable bilateral screening mammogram. Yearly follow-up mammogram recommended. (A) ASSESSMENT CATEGORY: BIRADS Category 2: Benign. A letter regarding these results will be sent to the patient by the facility within 30 days. Approximately 10% of breast cancers are not detected by mammography. A normal mammogram should not delay biopsy of a clinically suspicious abnormality. [id number] Electronically Signed: Lance Hardwick MD at 12:30 EDT ,
--- NOTE | 2022-10-25 10:37 | BD_ITS ---
STUDY: DUAL ENERGY X-RAY ABSORPTIOMETRY / DXA REASON FOR EXAM: Female, 82 years old. M85.89 TECHNIQUE: Bone Mineral Density (BMD) measurements of lumbar spine and bilateral hips were obtained. COMPARISON: Comparison is made with prior study dated March 15, 2020. FINDINGS: Lumbar Spine (L1-L4): g/cm2 (0.832) / T-score (-2.0) / Z-score (0.8) Findings are suggestive of osteopenia with a moderate fracture risk. Left Femur Total: g/cm2 (0.795) / T-score (-1.2) / Z-score (1.0) Left Femoral Neck: g/cm2 (0.472) / T-score (-3.4) / Z-score (-1.0) Right Femur Total: g/cm2 (0.762) / T-score (-1.5) / Z-score (0.7) Right Femoral Neck: g/cm2 (0.604) / T-score (-2.2) / Z-score (0.2) The T-Scores on the most recent prior examination were: Lumbar Spine (L1-L4): There has been worsening of bone density since the previous examination. Left Femur Total: which represents a worsening of 8.9%. Right Femur Total: which represents a worsening of 2.8%. BD/Dexa Bone Density Study IMPRESSION: The patient is considered osteoporotic as outlined below according to World Reji Organization (WHO) criteria with a high fracture risk. There has been worsening of bone density since the previous examination. Reference Information: The T-score is the number of standard deviations above or below the standard which is normal for young adults at their peak bone mineral density. The World Health Organization (WHO) interprets the T-scores as follows: Above -1 Normal bone density Between -1 and -2.5 Osteopenia Equal to / or below -2.5 Osteoporosis As a practical clinical guideline, osteopenia may be graded as follows: Mild -1 through -1.5 Moderate -1.6 through -2.0 Severe -2.1 through -2.4 The Z-score is the number of standard deviations above or below age-matched controls. A Z-score of less than -1.5 would be considered abnormal. References: 1. NIH Osteoporosis and Related Bone Diseases www osteo.org 2. International Society for Clinical Densitometry www iscd.org 3. National Osteoporosis Foundation www nof.org Electronically Signed: Lance Hardwick MD at 9:23 EDT ,
== END | disposition home or self-care (01) ==
LOC: OPBD 10:28
PROVIDERS: PCP Family Medicine; Referring Provider Nurse Practitioner Family; Visit Provider Nurse Practitioner Family
DX: Z12.31 Encounter for screening mammogram for malignant neoplasm of breast (principal); M85.89 Other specified disorders of bone density and structure, multiple sites; Z80.3 Family history of malignant neoplasm of breast
CPT/HCPCS: 77063; 77067; 77080

== ENCOUNTER 2022-12-04 08:30 | Outpatient (RCR) | payer MEDICARE, OTHER, SELFPAY ==
--- NOTE | 2022-10-23 14:52 | HP.PTEVAL ---
Patient's Visit Information BRENDA GOODMAN is a 82 year old F referred to Physical Therapy by Dr. Rodri Palomares MD with a diagnosis of STIFF BACK IN AM, LUMBAGO. Date of Evaluation: 10/23/22 Physical Therapist: Shirley Marion PT, Cert MDT - Visit Plan Frequency: 2-3x /Week Duration: 4-6 Weeks Plan: US TO RENEA LOW BACK X 6. POSTURE CORRECTION/STRENGTHENING, INSTRUCTION IN APPROPRIATE BODY MECHANICS AND ACTIVITY MODIFICATIONS. DLS STARTING WITH A NEUTRAL SPINE PROGRESSING ROM TOLERATED. RENEA LE ROM, STRETCHING AND STRENGTHENING. HEP INSTRUCTION. - Subjective Work/Leisure: RETIRED. Present symptoms: RENEA LBP. PATIENT DENIES RENEA LE SX'S. Present since: SEPTEMBER 2022 SINCE MOVING BACK FROM [place]. Pain Scale: WORST 5/10, 0/10. Currently: 1-210. Is it getting better, worse or staying the same: STAYING THE SAME. Commenced as a result of: PACKING TO COME BACK HOME FROM [place]. Worse: RISING FROM SITTING, MAKING THE BED, RUNNING THE SWEEPER, DOING THE DISHES, STANDING TO DO STUFF IN THE KITCHEN. Better: TYLONOL AND SELF TAUGHT STRETCHES. OTC PAIN PATCH. Disturbed sleep: SOMETIMES IF DOESN'T TAKE TYLONOL. Previous history/Previous treatment: UNREMARKABLE. Treatment this episode: TYLONOL AND SELF TAUGHT STRETCHING. OTC PAIN PATCH. Coughing/sneezing/straining: NEGATIVE. Gait: NORMAL. Bowel or Bladder Dysfunction: NO. Accidents: NO. Unexplained weight loss: NO. Imaging: NO. PMH/Recent major surgery: HTN, HIGH CHOLESTEROL, MACULAR DEGENERATION, HYPOTHYROIDISM. - Objective Sitting/Standing Posture: L ILIAC CREST HIGHER THAN RIGHT AND SPINE APPEARS SCOLIOTIC. SLOUCHED IN SITTING. REDUCED LORDOSIS. Active Correction of posture: BETTER. Other Observations: THIS PATIENT AMBULATES INDEP'LY INTO PHYSICAL THERAPY WITH GOOD CADANCE, GOOD BALANCE AND NO ASSITIVE DEVICES. Sensory deficit: RENEA LE LIGHT TOUCH SENSATION GROSSLY INTACT AND SYMMETRICAL. ROM deficit: TIGHTNESS RENEA HS'S AND GASTROC SOLEUS COMPLEX'S. Motor deficit: RENEA LE'S GROSSLY 5/5 WITH MMT'ING EXCEPT HIPS 4/5. Dural Signs: NEGATIVE RENEA LE'S. Lumbar mvmt loss: flex - MIN. ext - ANIYAH. R SG - MOD. L SG - MOD. Core strength: POOR. Palpation: INCREASED MUSCLE TONE RENEA LUMBAR PARASPINALS. TREATMENT: NEUROMUSCULAR REEDUCATION - RETRAINING OF MVMT AND POSTURE FOR SITTING, LYING AND STANDING ACTIVITIES. INITIATED HEP WITH SUPINE SKTC AND LTR X 10 TO 20 REPS, 3 TIMES A DAY TOLERATED. PATIENT HAS SEVERAL UPCOMING 3-4 DAY TRIPS. - Balance/Special Test Scores Oswestry Low Back Score: 8 - Goals Goal 1:: DECREASE C/O LOW BACK PAIN/STIFFNESS Goal Time Frame: 4-6 Weeks Goal 2:: IMPROVE LIFTING, STANDING, SLEEP, TRAVEL AND HOMEMAKING FUNCTION Goal Time Frame: 4-6 Weeks Goal 3:: INSTRUCT IN PROPHYLAXIS Goal Time Frame: 4-6 Weeks - Anticipated Interventions Patient/Client Instruction: Educate patient on: Condition, Plan of Care, Risk Factors For the Purpose of:: To improve self management Therapeutic Exercise to Include: Strength training, Body mechanics, Postural training, Flexibilty training, Neuromotor development, Dynamic Lumbar Stabilization For the Purpose of:: To decrease pain, To increase ROM, To improve muscle performance and motor function, To increase tolerance to activity/condition/position, To improve ability of physical actions for home/community/work/leisure Cryotherapy (ice pack, ice massage): Yes Thermo therapy (hot pack): Yes Ultrasound (thermal/non thermal): Yes For the Purpose of:: To decrease pain, To improve nutrient delivery to tissue Thank you for the opportunity to evaluate your patient. For Medicare and Medicare HMO plans, please review the plan of care and approve it. It will need to be FAXED BACK to us at [phone] for Medicare purposes. For Medicare only, by signing this I certify the plan of care. Please let me know if there are questions or concerns regarding this plan of care. Physician Signature: Date:
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
--- NOTE | 2023-02-28 12:22 | HP.PTDCNRP_ITS ---
Patient Information Patient Information: BRENDA GOODMAN was seen in my office for initial evaluation on 10/23/22. The following Plan of Care was established for this patient: POC Established Initial Frequency: 2-3x /Week Initial Duration: 4-6 Weeks Anticipated Interventions Patient/Client Instruction: Educate patient on: Condition, Plan of Care and Risk Factors For the Purpose of:: To improve self management Therapeutic Exercise to Include: Strength training, Body mechanics, Postural training, Flexibilty training, Neuromotor development and Dynamic Lumbar Stabilization For the Purpose of:: To decrease pain, To increase ROM, To improve muscle performance and motor function, To increase tolerance to activity/conditi on/position and To improve ability of physical actions for home/community/work/leisure Cryotherapy (ice pack, ice massage): Yes Thermo therapy (hot pack): Yes Ultrasound (thermal/non thermal): Yes For the Purpose of:: To decrease pain and To improve nutrient delivery to tissue Last Seen Last Seen: This patient was last seen in our office 12/04/22. Pertinent comments regarding their Physical therapy will appear below: This patient has not returned to Physical Therapy and is appropriate to return to MD for further follow-up as needed. At this point I will be discontinuing this patient from physical therapy. I would be happy to see this patient again in the future if found appropriate by the physician. Thank you! Shirley Marion, PT, Cert MDT Balance/Gait/Functional tests Balance/Special Test Scores Oswestry Low Back Score: 10
== END 2022-12-04 19:00 | disposition home or self-care (01) ==
LOC: PT 08:30
PROVIDERS: PCP Family Medicine; Referring Provider Family Medicine; Visit Provider Family Medicine
DX: M54.50 Low back pain, unspecified (principal)
CPT/HCPCS: 97035; 97110; 97112; 97162; 97164

== ENCOUNTER → 2022-12-06 | Outpatient (CLI) | payer MEDICARE, OTHER, SELFPAY ==
--- NOTE | 2022-12-06 11:29 | RAD_ITS ---
INDICATION: left hip, pain and radiculopathy EXAMINATION/TECHNIQUE: X-RAY - XR Hip Unilateral with Pelvis when performed; 2-3 Views: AP view pelvis with AP and lateral views of left hip COMPARISON: None. FINDINGS: PELVIC BONES: No displaced fracture or suspicious osseous lesion demonstrated. Note that overlapping bowel shadows may however obscure fine detail. Sacroiliac joints are unremarkable. No widening of the pubic symphysis. Mild endplate spurring along imaged spine. HIPS: Symmetric bilateral hips with preserved joint spaces. No suspicious osseous lesion or displaced fracture seen in this frontal view. SOFT TISSUES: Small calcified pelvic phleboliths and calcified gluteal injection granulomas noted. RAD/HIP, UNI W/ Pelvis 2-3 Views IMPRESSION: Pelvis and left hip with no acute osseous abnormality. Electronically Signed: Kirill Hull MD at 6:39 EDT ,
== END | disposition home or self-care (01) ==
LOC: MTRAD 11:29
PROVIDERS: PCP Family Medicine; Referring Provider Family Medicine; Visit Provider Family Medicine
DX: M25.552 Pain in left hip (principal); M54.10 Radiculopathy, site unspecified
CPT/HCPCS: 73502

== ENCOUNTER → 2022-12-18 | Outpatient (CLI) | payer MEDICARE, OTHER, SELFPAY ==
--- NOTE | 2022-12-18 08:03 | CT_ITS ---
STUDY: CT LUMBAR SPINE WITHOUT CONTRAST REASON FOR EXAM: Female, 82 years old. Back pain w/ L radiculopathy and osteoporosis RADIATION DOSAGE (If Supplied By Facility): CTDIvol = ( 15.23 ) mGy, DLP = ( 457.64 ) mGycm TECHNIQUE: The patient was scanned in a multi detector CT scanner. High resolution transaxial imaging was performed. Images were obtained from L1 to S1 vertebral body. Sagittal and coronal images were reconstructed. Individualized dose optimization techniques were used for this CT. COMPARISON: None FINDINGS: There is straightening of the normal lumbar lordosis. There is no substantial scoliosis. Normal vertebrae of the lumbar spine. L1-2: Mild degree of disc space narrowing. Anterior spondylosis. L2-3: Moderate degree of disc space narrowing and disc degeneration. Anterior spondylosis. No significant stenosis seen. L3-4: Mild degree of disc space narrowing. Mild degree of diffuse posterior disc bulge and hypertrophy of the facet joints. Moderate degree of bilateral neural foraminal stenosis. Losn-yj-ixxbxyrd diffuse posterior disc bulge. L4-5: Mild degree of disc space narrowing. Mild degree of diffuse posterior disc bulge and facet joint osteoarthritis and hypertrophy. Moderate degree of bilateral neural foraminal stenosis. L5-S1: Facet joint osteoarthritis and hypertrophy. No significant stenosis seen. Atherosclerotic calcification of the abdominal aorta. CT/Spine Lumbar without Contrast IMPRESSION: Multilevel degenerative changes, as described above. Electronically Signed: Lance Hardwick MD at 12:17 EDT ,
--- NOTE | 2022-12-18 08:03 | CT_ITS ---
STUDY: CT THORACIC SPINE WITHOUT CONTRAST REASON FOR EXAM: Female, 82 years old. Back pain w/ L radiculopathy and osteoporosis RADIATION DOSAGE (If Supplied By Facility): CTDIvol = ( 18.49 ) mGy, DLP = ( 745.24 ) mGycm TECHNIQUE: The patient was scanned in a multi detector CT scanner. High resolution imaging was performed. Images were obtained from T1 to T12 vertebral level. Sagittal and coronal images were reconstructed. Individualized dose optimization techniques were used for this CT. COMPARISON: None. FINDINGS: There is multilevel endplate spondylosis of the cervical spine. There is straightening of the normal thoracic kyphosis. There is no substantial scoliosis. There is multilevel endplate spondylosis of the thoracic spine. There is multilevel degenerative disc disease with loss of the disc space heights. Atherosclerotic calcification of the aortic arch. Coronary artery calcification. CT/Spine Thoracic without Contras IMPRESSION: Multilevel disc space narrowing and spondylosis. No significant stenosis is seen. Electronically Signed: Lance Hardwick MD at 12:19 EDT ,
== END | disposition home or self-care (01) ==
LOC: CT 07:56
PROVIDERS: PCP Family Medicine; Referring Provider Family Medicine; Visit Provider Family Medicine
DX: M54.16 Radiculopathy, lumbar region (principal)
CPT/HCPCS: 72128; 72131

== ENCOUNTER → 2023-02-12 | Outpatient (CLI) | payer MEDICARE, OTHER, SELFPAY ==
[2023-02-12 10:30] LABS: Free T3 2.7 pg/mL (2.18-3.98); T4 Free Direct 0.51 ng/dL (0.76-1.46); Thyroid Stim Hormone (TSH) 0.29 uIU/mL (0.358-3.74)
== END | disposition home or self-care (01) ==
LOC: MFPLAB 08:28
PROVIDERS: PCP Family Medicine; Visit Provider Family Medicine
DX: E03.9 Hypothyroidism, unspecified (principal)
CPT/HCPCS: 36415; 84439; 84443; 84481

== ENCOUNTER → 2023-02-27 | Outpatient (CLI) | payer MEDICARE, OTHER, SELFPAY ==
[2023-02-27 10:45] LABS: Microalbumin,Random Urine 31.5 mg/L (NO RANGE EST.)
[2023-02-27 10:50] LABS: ALB/GLOB Ratio 0.9 RATIO (0.9-2.4); AST(SGOT) 21 U/L (15-37); Alanine Aminotransfer ALT/SGPT 26 U/L (13-56); Albumin, Serum 3.7 g/dL (3.2-5.0); Alkaline Phosphatase 49 U/L (45-117); Anion Gap 6 (5-15); BUN 16 mg/dL (7-18); BUN/Creat Ratio 26.2 RATIO (10-20); Calcium,Total 8.7 mg/dL (8.5-10.1); Chloride 104 mmol/L (98-107); Cholesterol 156 mg/dL (200); Creatinine, Serum 0.61 mg/dL (0.55-1.02); EST Glomerular Filtration Rate 100 mL/min (>60); Est Glom Filt Rate - Afr Amer 120 mL/min (>60); Glucose 102 mg/dL (74-106); High Density Lipoprotein 74 mg/dL; Protein, Total 7.7 g/dL (6.4-8.2); Sodium Level 135 mmol/L (136-145); T4 Free Direct 0.73 ng/dL (0.76-1.46); Thyroid Stim Hormone (TSH) 1.42 uIU/mL (0.358-3.74); Triglycerides 171 mg/dL; Very Low Density Lipoprotein 34 mg/dL (5-40)
[2023-02-27 11:59] LABS: Hemoglobin A1c 6.4 % (3.8-5.6)
== END | disposition home or self-care (01) ==
PROVIDERS: PCP Family Medicine; Visit Provider Family Medicine
DX: I10 Essential (primary) hypertension (principal); E03.9 Hypothyroidism, unspecified; E78.00 Pure hypercholesterolemia, unspecified
CPT/HCPCS: 36415; 80053; 80061; 82043; 82570; 83036; 84439; 84443

== ENCOUNTER → 2023-04-25 | Outpatient (CLI) | payer MEDICARE, OTHER, SELFPAY ==
[2023-04-25 10:17] LABS: Hemoglobin A1c 6.2 % (3.8-5.6)
[2023-04-25 10:23] LABS: Microalbumin,Random Urine 31.3 mg/L (NO RANGE EST.); Microalbumin:Creatinine Ratio 208.7 mg/g CRE (<30 mg/g CRE)
[2023-04-25 10:26] LABS: ALB/GLOB Ratio 0.9 RATIO (0.9-2.4); AST(SGOT) 17 U/L (15-37); Alanine Aminotransfer ALT/SGPT 24 U/L (13-56); Albumin, Serum 3.8 g/dL (3.2-5.0); Alkaline Phosphatase 44 U/L (45-117); Anion Gap 9 (5-15); BUN 18 mg/dL (7-18); BUN/Creat Ratio 29.8 RATIO (10-20); Chloride 103 mmol/L (98-107); EST Glomerular Filtration Rate 101 mL/min (>60); Est Glom Filt Rate - Afr Amer 122 mL/min (>60); Globulin 4.2 g/dL (2.2-4.2); Glucose 110 mg/dL (74-106); Potassium 3.7 mmol/L (3.5-5.1); Sodium Level 137 mmol/L (136-145)
== END | disposition home or self-care (01) ==
LOC: MFPLAB 08:24
PROVIDERS: PCP Family Medicine; Visit Provider Family Medicine
DX: I10 Essential (primary) hypertension (principal); R73.03 Prediabetes
CPT/HCPCS: 36415; 80053; 82043; 82570; 83036

== ENCOUNTER → 2023-10-24 | Outpatient (CLI) | payer MEDICARE, OTHER, SELFPAY ==
[2023-10-24 12:23] LABS: Absolute Lymphocyte Count 2.02 X10^3/uL (0.83-4.51); Absolute Neutrophil Count 4.5 X10^3/uL (2.0-7.7); Basophil# 0.05 X10^3/uL; Basophil% 0.7 % (0-1); Eosinophils% 1.3 % (0-5); Hematocrit 45.7 % (37-47); Hemoglobin 15.1 g/dL (12.0-15.0); Lymphocyte # 2.02 X10^3/ul (0.83-4.51); Lymphocyte % 26.8 % (19-41); Mean Corpuscular Hgb 29.7 pg (27.0-32.0); Mean Corpuscular Volume 89.8 fL (81-99); Mean Platelet Vol. 9.8 fl (6.2-12.0); Monocyte# 0.89 X10^3/uL; Monocyte% 11.8 % (0-10); NRBC Flagged by Analyzer 0 % (0-5); Neutrophil # 4.46 X10^3/uL (2.7-7.7); Neutrophil % 59.3 % (47-70); Platelet Count 232 K/mm3 (150-450); RBC Distribution Width CV 13.2 % (11.6-14.6); RBC Distribution Width SD 43.3 fl (35.1-43.9); Red Blood Count 5.09 M/mm3 (4.2-5.4); White Blood Count 7.5 K/mm3 (4.4-11.0)
[2023-10-24 12:42] LABS: Hemoglobin A1c 6.1 % (3.8-5.6)
[2023-10-24 12:46] LABS: ALB/GLOB Ratio 0.9 RATIO (0.9-2.4); AST(SGOT) 17 U/L (15-37); Alanine Aminotransfer ALT/SGPT 27 U/L (13-56); Albumin, Serum 3.9 g/dL (3.2-5.0); Alkaline Phosphatase 40 U/L (45-117); Anion Gap 4 (5-15); BUN 18 mg/dL (7-18); BUN/Creat Ratio 27.9 RATIO (10-20); Calcium,Total 9.3 mg/dL (8.5-10.1); Chloride 103 mmol/L (98-107); Creatinine, Serum 0.65 mg/dL (0.55-1.02); EST Glomerular Filtration Rate 93 mL/min (>60); Est Glom Filt Rate - Afr Amer 113 mL/min (>60); Free T3 2.6 pg/mL (2.18-3.98); Globulin 4.3 g/dL (2.2-4.2); Glucose 133 mg/dL (74-106); Potassium 3.9 mmol/L (3.5-5.1); Protein, Total 8.2 g/dL (6.4-8.2); Sodium Level 137 mmol/L (136-145); T4 Free Direct 0.91 ng/dL (0.76-1.46); Thyroid Stim Hormone (TSH) 0.11 uIU/mL (0.358-3.74)
[2023-10-24 12:57] LABS: Creatinine, Urine (random) < 13.00 mg/dL (NO RANGE EST.); Microalbumin,Random Urine 10.2 mg/L (NO RANGE EST.)
== END | disposition home or self-care (01) ==
LOC: MFPLAB 09:39
PROVIDERS: PCP Family Medicine; Visit Provider Family Medicine
DX: R73.03 Prediabetes (principal); E03.9 Hypothyroidism, unspecified; M81.0 Age-related osteoporosis without current pathological fracture; R80.9 Proteinuria, unspecified
CPT/HCPCS: 36415; 80053; 82043; 82570; 83036; 84439; 84443; 84481; 85025

== ENCOUNTER → 2024-04-17 | Outpatient (CLI) | payer MEDICARE, OTHER, SELFPAY ==
[2024-04-17 10:52] LABS: Anion Gap 7 (5-15); BUN 16 mg/dL (7-18); BUN/Creat Ratio 24.2 RATIO (10-20); Calcium,Total 9.3 mg/dL (8.5-10.1); Chloride 103 mmol/L (98-107); Creatinine, Serum 0.66 mg/dL (0.55-1.02); EST Glomerular Filtration Rate 90 mL/min (>60); Est Glom Filt Rate - Afr Amer 109 mL/min (>60); Glucose 125 mg/dL (74-106); Potassium 3.6 mmol/L (3.5-5.1); Sodium Level 138 mmol/L (136-145)
== END | disposition home or self-care (01) ==
LOC: MFPLAB 08:19
PROVIDERS: PCP Family Medicine; Referring Provider Family Medicine; Visit Provider Family Medicine
DX: E03.9 Hypothyroidism, unspecified (principal)
CPT/HCPCS: 36415; 80048

== ENCOUNTER → 2024-04-29 | Outpatient (CLI) | payer MEDICARE, OTHER, SELFPAY ==
[2024-04-29 13:08] LABS: Cholesterol 138 mg/dL (200); High Density Lipoprotein 79 mg/dL; Triglycerides 113 mg/dL; Very Low Density Lipoprotein 23 mg/dL (5-40)
== END | disposition home or self-care (01) ==
LOC: MFPLAB 10:45
PROVIDERS: PCP Family Medicine; Referring Provider Family Medicine; Visit Provider Family Medicine
DX: E78.5 Hyperlipidemia, unspecified (principal)
CPT/HCPCS: 36415; 80061

== ENCOUNTER → 2024-11-03 | Outpatient (CLI) | payer MEDICARE, OTHER, SELFPAY ==
[2024-11-03 12:46] LABS: Hemoglobin A1c 6.6 % (<=5.6)
[2024-11-03 12:57] LABS: ALB/GLOB Ratio 1.3 RATIO (0.9-2.4); AST(SGOT) 25 U/L (<=31); Alanine Aminotransfer ALT/SGPT 21 U/L (<=34); Albumin, Serum 4.4 g/dL (3.4-4.8); Alkaline Phosphatase 49 U/L (35-104); Anion Gap 12 (5-15); BUN 14 mg/dL (4-19); BUN/Creat Ratio 22.8 RATIO (10-20); Calcium,Total 9.6 mg/dL (7.6-11.0); Carbon Dioxide 24.2 mmol/L (21.0-32.0); Chloride 103 mmol/L (98-108); Creatinine, Serum 0.62 mg/dL (0.70-1.20); EST Glomerular Filtration Rate 88 (>60); Globulin 3.5 g/dL (2.2-4.2); Glucose 107 mg/dL (70-99); Sodium Level 139 mmol/L (133-145); Thyroid Stim Hormone (TSH) 0.203 uIU/mL (0.300-4.200)
[2024-11-03 15:05] LABS: Microalbumin,Random Urine < 12.0 mg/L (NO RANGE EST.); Microalbumin:Creatinine Ratio UNABLE TO CALCULATE mg/g CRE
[2024-11-04 04:07] LABS: T3UP 27 % (24-39)
== END | disposition home or self-care (01) ==
LOC: MTLAB 10:21
PROVIDERS: PCP Family Medicine; Referring Provider Family Medicine; Visit Provider Family Medicine
DX: E03.9 Hypothyroidism, unspecified (principal); I10 Essential (primary) hypertension; M81.0 Age-related osteoporosis without current pathological fracture; R73.03 Prediabetes
CPT/HCPCS: 36415; 80053; 82043; 82306; 82570; 83036; 84439; 84443; 84479

== ENCOUNTER → 2024-12-01 | Outpatient (CLI) | payer MEDICARE, OTHER, SELFPAY ==
--- NOTE | 2024-12-01 10:07 | BI_ITS ---
EXAM: SCRN MAMM (CAD)W/BRYAN BILAT DATE: 12/01/2024 CLINICAL HISTORY: F, Age 84 y/o , SCREENING FOR BREAST CANCER Maternal aunt with breast cancer. Prior right ultrasound-guided breast biopsy and left excisional breast biopsy. BREAST CANCER RISK ASSESSMENT: Not assessed. TECHNIQUE: Bilateral screening digital breast tomosynthesis with 2D and 3D images. Computer aided detection. COMPARISON: Prior exam(s) dated October 25, 2022.. FINDINGS: TISSUE DENSITY: The breast tissue is heterogenously dense, which may obscure small masses. Bilateral Breast Mammographic Findings: No significant masses, calcifications or other abnormalities are identified. Once again, a tissue clip marker is seen within the tiny nodular density in the anterior upper lateral portion of the right breast. Stable fat containing right axillary lymph nodes. No suspicious masses, areas of developing architectural distortion, or suspicious calcifications. There has been no significant interval change. BI/SCRN MAMM (CAD)W/BRYAN BILAT IMPRESSION: OVERALL FINAL ASSESSMENT: BIRADS 2 BENIGN FINDING RECOMMENDATION: Routine annual follow-up in 1 Year A letter with findings and recommendations will be mailed to the patient. Reading Location: [place] [id number]
== END | disposition home or self-care (01) ==
LOC: OPBI 10:07
PROVIDERS: PCP Family Medicine; Referring Provider Family Medicine; Visit Provider Family Medicine
DX: Z12.31 Encounter for screening mammogram for malignant neoplasm of breast (principal)
CPT/HCPCS: 77063; 77067

== ENCOUNTER → 2025-05-04 | Outpatient (CLI) | payer MEDICARE, OTHER, SELFPAY ==
[2025-05-04 13:09] LABS: AST(SGOT) 20 U/L (<=31); Alanine Aminotransfer ALT/SGPT 17 U/L (<=34); Albumin, Serum 4.3 g/dL (3.4-4.8); Alkaline Phosphatase 49 U/L (35-104); Anion Gap 11 (5-15); BUN 15 mg/dL (4-19); BUN/Creat Ratio 23.4 RATIO (10-20); Calcium,Total 9.7 mg/dL (7.6-11.0); Carbon Dioxide 25.9 mmol/L (21.0-32.0); Chloride 101 mmol/L (98-108); Cholesterol 140 mg/dL (<=200); Free T3 2.7 pg/mL (2.18-3.98); Globulin 3.3 g/dL (2.2-4.2); Glucose 105 mg/dL (70-99); Low Density Lipoprotein Calc. 51 mg/dL; Potassium 4.2 mmol/L (3.3-5.1); Triglycerides 145 mg/dL; Very Low Density Lipoprotein 29 mg/dL (5-40); cholesterol:hdl ratio screen 2.16
[2025-05-04 15:32] LABS: Creatinine, Urine (random) 12.30 mg/dL (28.00-217.00); Microalbumin,Random Urine < 12.0 mg/L (<20 mg/L)
== END | disposition home or self-care (01) ==
LOC: MTLAB 10:18
PROVIDERS: PCP Family Medicine; Referring Provider Family Medicine; Visit Provider Family Medicine
DX: R73.03 Prediabetes (principal); E03.9 Hypothyroidism, unspecified; I10 Essential (primary) hypertension
CPT/HCPCS: 36415; 80053; 80061; 82043; 82570; 83036; 84439; 84443; 84481